=== PATIENT | male | born 1985 | race Two or more races ===

== ENCOUNTER 2017-07-22 18:15 | Emergency (ER) | payer OTHER ==
[~2017-07-22] VITALS: Ht 167.6 cm; Wt 78.0 kg
[~2017-07-22 18:15] MED LIST: CEPHALEXIN500 MG PO; NKM; VICODIN 5-5001 EACH PO
[2017-07-22 18:35] VITALS: BP 131/84
[2017-07-22] MEDS ORDERED: Bacitracin Oint UD TOPIC ONE (18:45)
[2017-07-22] MEDS ORDERED: Lidocaine 1% MPF 10mg/ml 5ml INJ ONE (18:45)
[2017-07-22] MEDS ORDERED: BACITRACIN15 GM TOPIC (19:21)
[2017-07-22] MEDS ORDERED: IBUPROFEN600 MG ORAL (19:21)
[2017-07-22 19:31] VITALS: BP 128/84
[2017-07-22 19:34] VITALS: BP 128/84
--- NOTE | 2017-07-22 19:58 | Emergency Room Report ---
History of Present Illness General Chief Complaint: Laceration Source: Patient Present Illness HPI The patient is a 31-year-old male presenting for left index finger laceration. 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 This occurred one hour prior to arrival. Pain is a 5/10 dull ache and does not radiate. Worse with touch. He denies any numbness or tingling. Last tetanus shot 5 years prior. He denies any other injury or symptoms Allergies: Coded Allergies: No Known Allergies (Unverified , 01/27/13) Patient History Past Medical History: see triage record Pertinent Family History: none Immunizations: UTD Reviewed Nursing Documentation: PMH: Agreed, PSxH: Agreed Nursing Documentation-PMH Past Medical History: No Stated History Review of Systems All Other Systems: negative except mentioned in HPI Physical Exam Vital Signs Date Time Temp Pulse Resp B/P (MAP) Pulse Ox O2 Delivery O2 Flow Rate FiO2 07/22/17 18:22 98.1 63 15 131/84 96 Room Air Sp02 EP Interpretation: reviewed, normal General Appearance: no apparent distress, alert, GCS 15, non-toxic Head: normocephalic, atraumatic Eyes: bilateral eye normal inspection, bilateral eye PERRL ENT: hearing grossly normal, normal pharynx, no angioedema, normal voice Neck: full range of motion, supple/symm/no masses Respiratory: chest non-tender, lungs clear, normal breath sounds, speaking full sentences Cardiovascular #1: regular rate, rhythm, no edema Musculoskeletal: back normal, gait/station normal, normal range of motion, non- tender, tender - TTP over the L distal finger Neurologic: alert, oriented x3, responsive, motor strength/tone normal, sensory intact, speech normal Psychiatric: judgement/insight normal, memory normal, mood/affect normal, no suicidal/homicidal ideation Skin: normal color, no rash, warm/dry, well hydrated, laceration - linear laceration to the L distal finger involving distal fingernail Lymphatic: no adenopathy Procedures Splinting Splinting : Consent: Verbal Location: L index finger Pre-Made Type: metal Splint: finger Pre-Proc Neuro Vasc Exam: normal Post-Proc Neuro Vasc Exam: normal Patient Tolerated: Well Complications: None Laceration/Wound Repair Laceration/Wound Repair : Consent: Verbal Wound Location: upper extremity Wound's Depth, Shape: superficial, linear Wound Length (cm): 2 Wound Explored: clean Irrigated w/ Saline (ccs): 100 Betadine Prep?: Yes Anesthesia: 1% Lidocaine Volume Anesthetic (ccs): 5 Wound Debrided: minimal Wound Repaired With: sutures Suture Size/Type: 4:0, proline Number of Sutures: 3 Layer Closure?: No Sterile Dressing Applied?: Yes Splint Applied?: Yes Sling Applied?: No Patient Tolerated: Well Complications: None Medical Decision Making PA Attestation Dr. Stewart is my supervising physician. Patient management was discussed with my supervising physician Diagnostic Impression: Primary Impression: Finger laceration Qualified Codes: S61.311A - Laceration without foreign body of left index finger with damage to nail, initial encounter ER Course The patient is a 31-year-old male presenting for left index finger laceration. Ddx considered include but not limited to laceration, fracture, tendon/ligament injury, avulsion, nerve damage PE: vitals WNL. NAD 2cm linear laceration to the L distal index finger involving nail. No avulsion The wound was irrigated with normal saline and cleaned with betadine. A 27g needle was used to administer 5mL of lidocaine w.o epi for digital block. 3 sutures were placed with 4-0 nylon. The wound was well approximated and the patient tolerated the procedure well. The wound was then cleaned and bacitracin was applied. A metal finger splint was applied The patient will continue to keep the wound clean and dry and will followup with PMD and workers compensation. Suture instructions provided. ER precautions are given Other X-Ray Diagnostic Results Other X-Ray Diagnostic Results : X-Ray ordered: L hand # of Views/Limited Vs Complete: 3 View Indication: Pain EP Interpretation: Yes Interpretation: no dislocation, no soft tissue swelling, no fractures Impression: Other - soft tissue laceration L index finger Electronically Signed by: DO MARYBEL Trejo Scribe Text I am acting as scribe for my supervising physician. My supervising physician's interpretation of the L hand xrays are there are no fractures, dislocations or soft tissue swelling. Last Vital Signs Date Time Temp Pulse Resp B/P (MAP) Pulse Ox O2 Delivery O2 Flow Rate FiO2 07/22/17 19:34 98.6 66 16 128/84 96 Room Air Status: improved Disposition: HOME, SELF-CARE Condition: Improved Scripts Bacitracin (Bacitracin) 28.4 Gm Oint...g. 1 APPLIC TOPIC THREE TIMES A DAY, #28 GM Prov: AVANI GRAJEDA 07/22/17 Ibuprofen* (MOTRIN*) 600 Mg Tablet 600 MG ORAL Q8H Y for For Pain, #30 TAB 0 Refills Prov: AVANI GRAJEDA 07/22/17 Patient Instructions: Laceration Care, Adult Additional Instructions: I discussed my findings with the patient. All questions and concerns have been answered. Treatment and medication compliance have been addressed. I advised the patient that they need to follow up with PMD in 5-7 days for wound check and suture removal. If you are unable to see PMD, return to the ED in 5-7 days. Return to ED if pain remains or worsens, you notice discharge from the wound, the wound continues to bleed, the suture/s fall out, you notice a fever or chills, or for any reason. Patient is advised to keep the wound clean and apply an antibacterial ointment. Patient verbalized understanding of discharge instructions. AVANI GRAJEDA Jul 22, 2017 19:58
--- NOTE | 2017-07-23 10:09 | Diagnostic Imaging Report ---
Indication: Index finger laceration Technique: XRAY HAND MIN 3V LEFT Comparison: None. Findings: There is laceration of the tip of the second finger. A small chip fracture is noted from the terminal tuft. The remainder the bones are intact. The joints are normal. Impression: Altered fracture from the terminal tuft of the second finger with laceration. Otherwise negative. Dr. Taylor was notified of the findings by phone 07/23/2017 at 10:03 AM.
== END 2017-07-22 19:40 | disposition home or self-care (01) ==
LOC: EMR 18:35
DX: S61.211A Laceration without foreign body of left index finger without damage to nail, initial encounter (principal); W27.8XXA Contact with other nonpowered hand tool, initial encounter; Y92.511 Restaurant or cafe as the place of occurrence of the external cause; Y99.0 Civilian activity done for income or pay
CPT/HCPCS: 29130; 99284